=== PATIENT | female | born 1980 | race Caucasian/White ===

== ENCOUNTER 2016-08-16 20:13 | Emergency (ER) | payer OTHER ==
[~2016-08-16] VITALS: Ht 165.1 cm; Wt 134.4 kg
[~2016-08-16 20:13] MED LIST: ACIDOPHILUS1 EAC5 PO; ALBUTEROL SULF8.5 GM IH; ALL DAY ALLERGY10 M1 PO; AMLODIPINE BESYL5 MG PO; ANTIVERT25 MG PO; ATORVASTATIN CA20 MG PO; BACTRIM,SEPT1 TABLET PO; CELEXA20 MG PO; CIPRO500 MG PO; ELAVIL25 MG PO; ELAVIL50 MG PO; ELAVIL75 MG PO; FLONASE16 G1 BOTH NARES; GLUCOPHAGE500 MG PO; GLYBURIDE5 MG PO; IMITREX50 MG PO; INVOKAMET 150-1 EACH PO; KEFLEX500 MG PO; KLONOPIN0.5 M1 PO; MOTRIN600 MG PO; MOTRIN800 MG PO; NASONEX17 GM BOTH NARES; NORCO 5/3251 TABLET PO; OCUFLOX 0.100 DROP/5 BOTH EYES; PERCOCET 5/31 TABLET PO; PROMETHAZINE HC25 M1 PO; SPRINTEC1 EACH PO; SULFAZINE500 M1 PO; TRAZODONE HCL50 MG PO; TRULICITY1.5 MG/0.5 SC; ULTRAM50 MG PO; VALIUM5 MG PO; ZESTORETIC 20-1 EAC2 PO; ZOFRAN ODT4 MG PO; ZOFRAN4 MG PO; ZOLOFT100 MG PO
[2016-08-16 20:44] LABS: POINT-OF-CARE METER ID UU13113778
[2016-08-16 21:13] LABS: HEMATOCRIT 48.3 % (36.0-46.0); MCH 29.1 PG (29.0-34.0); MCV 83.3 FL (83-99); MEAN PLAT.VOLUME 11.9 uM^3 (9.5-12.4); PLATELET COUNT 195 K/uL (156-360); RBC DIS.WIDTH-CV 14.1 % (11.8-14.6); RBC DIS.WIDTH-SD 42.5 % (39-53); WHITE BLOOD COUNT 10.6 K/uL (4.1-10.2)
[2016-08-16 21:21] LABS: CHLORIDE 104 mEq/L (99-109); POTASSIUM 4.2 mEq/L (3.7-5.4); SODIUM 136 mEq/L (136-147)
[2016-08-16 21:25] LABS: ANION GAP 12 MEQ/L (2-14); TOTAL BILIRUBIN 0.5 mg/dL (0.0-1.0)
[2016-08-16 21:27] LABS: ALKALINE PHOSPHATASE 75 IU/L (3-129); GFR ESTIMATE (CALCULATED) 55 mL/min/
[2016-08-16 21:28] LABS: UREA NITROGEN (BUN) 14 mg/dL (9-23)
[2016-08-16 21:29] LABS: GLUCOSE 452 mg/dL (70-99)
[2016-08-16 21:37] LABS: QUANTITATIVE HCG < 4.0 MIU/ML
[2016-08-16 22:43] LABS: ADD MIUA? YES; BILIRUBIN NEGATIVE; BLOOD TRACE; COLOR YELLOW ((YELLOW)); GLUCOSE (STRIP) >=1000; KETONES NEGATIVE; LEUKOCYTES NEGATIVE; NITRITE NEGATIVE; PH, URINE 5.5 (5-8); PROTEIN (STRIP) NEGATIVE; UROBILINOGEN 0.2 MG/DL (0.2-1.0)
[2016-08-16 22:59] LABS: SPECIFIC GRAVITY 1.044 (1.000-1.030)
[2016-08-16 23:06] LABS: BACTERIA RARE; CASTS NONE SEEN /LPF; CRYSTALS NONE SEEN; EPITHELIAL CELLS RARE; MUCUS NONE SEEN; UCUL ADDED? NO; WHITE BLOOD CELLS 0-5 /HPF (0-5)
[2016-08-16 23:11] LABS: CARBON DIOXIDE (BICARBONATE) 24.3 MEQ/L (20-31)
[2016-08-16 23:42] LABS: TROP-I INTERPRETATION NEGATIVE; TROPONIN-I < 0.01 ng/mL (0.0-0.30)
[2016-08-17 01:26] LABS: POINT-OF-CARE METER ID UU13113800
[2016-08-17 02:20] VITALS: BP 103/65
== END 2016-08-17 02:22 | disposition home or self-care (01) ==
LOC: EME 20:13
PROVIDERS: Nurse Practitioner Family
DX: E11.65 Type 2 diabetes mellitus with hyperglycemia (principal); E78.5 Hyperlipidemia, unspecified; Z87.442 Personal history of urinary calculi
CPT/HCPCS: 70450; 80053; 81003; 82803; 82948; 84484; 84702; 85027; 93005; 99281; 99285

== ENCOUNTER 2016-10-01 13:37 | Emergency (ER) | payer OTHER ==
[~2016-10-01] VITALS: Ht 166.4 cm; Wt 134.9 kg
[2016-10-01 14:44] LABS: HEMATOCRIT 45.3 % (36.0-46.0); MCHC 33.8 G/DL (30.0-36.0); MEAN PLAT.VOLUME 10.5 uM^3 (9.5-12.4); PLATELET COUNT 192 K/uL (156-360); RBC DIS.WIDTH-CV 14.6 % (11.8-14.6); RBC DIS.WIDTH-SD 45.6 % (39-53); RED BLOOD COUNT 5.27 M/uL (3.80-5.20); WHITE BLOOD COUNT 10.7 K/uL (4.1-10.2)
[2016-10-01 14:56] LABS: CHLORIDE 107 mEq/L (99-109); POTASSIUM 3.5 mEq/L (3.7-5.4); SODIUM 142 mEq/L (136-147)
[2016-10-01 14:57] LABS: GLUCOSE 122 mg/dL (70-99)
[2016-10-01 14:59] LABS: ANION GAP 11 MEQ/L (2-14)
[2016-10-01 15:01] LABS: GFR ESTIMATE (CALCULATED) > 59 mL/min/
[2016-10-01 15:02] LABS: UREA NITROGEN (BUN) 12 mg/dL (9-23)
[2016-10-01 19:08] LABS: ADD MIUA? YES; BILIRUBIN NEGATIVE; BLOOD NEGATIVE; COLOR YELLOW ((YELLOW)); GLUCOSE (STRIP) >=500; KETONES 20; LEUKOCYTES MODERATE; NITRITE NEGATIVE; PROTEIN (STRIP) NEGATIVE; SPECIFIC GRAVITY 1.031 (1.000-1.030); UROBILINOGEN 0.2 MG/DL (0.2-1.0)
[2016-10-01 19:22] LABS: BACTERIA NONE SEEN /HPF; EPITHELIAL CELLS 1+ /HPF; MUCUS NONE SEEN /LPF; RED BLOOD CELLS 0-5 /HPF (0-5); UCUL ADDED? NO; WHITE BLOOD CELLS 20-30 /HPF (0-5)
[2016-10-01 23:21] LABS: TOTAL BILIRUBIN 0.7 mg/dL (0.0-1.0)
[2016-10-01 23:22] LABS: ALKALINE PHOSPHATASE 61 IU/L (3-129)
[2016-10-01 23:24] LABS: DIRECT BILIRUBIN 0.2 mg/dL (0.0-0.3)
[2016-10-01 23:25] LABS: LIPASE 20 U/L (1.0-51.0)
[2016-10-01 23:32] LABS: QUANTITATIVE HCG < 4.0 MIU/ML
[2016-10-01] MEDS ORDERED: REGLAN5 MG PO (23:41)
[2016-10-01] MEDS ORDERED: TORADOL10 MG PO (23:41)
[2016-10-01] MEDS ORDERED: MEDROL DOSEPAK4 MG PO (23:41)
[2016-10-01] MEDS ORDERED: PERCOCET 5/31 TABLET PO (23:41)
[2016-10-01] MEDS ORDERED: BACTRIM,SEPT1 TABLET PO (23:55)
[2016-10-02 00:29] VITALS: BP 138/87
== END 2016-10-02 00:32 | disposition home or self-care (01) ==
LOC: EME 13:37
DX: R51 Headache (principal); G43.909 Migraine, unspecified, not intractable, without status migrainosus; I10 Essential (primary) hypertension
CPT/HCPCS: 80048; 80076; 81003; 83690; 84702; 85027; 99281; 99285; J1100; J1200; J1885; J2270; J2765; J3475; J7030

== ENCOUNTER 2016-10-26 12:05 | Emergency (ER) | payer OTHER ==
[~2016-10-26] VITALS: Ht 167.6 cm; Wt 137.1 kg
[~2016-10-26 12:05] MED LIST changes: +MEDROL DOSEPAK4 MG PO; +REGLAN5 MG PO; +TORADOL10 MG PO
[2016-10-26 18:10] LABS: APPEARANCE CLEAR/COLORLESS; RED CELL AREA COUNTED 8; RED CELL COUNT 400 /MM^3 (0-1); RED CELL DILUTION 1; WBC DILUTION 1; WHITE CELL RAW COUNT 9
[2016-10-26 18:11] LABS: WBC AREA COUNTED 18; WHITE CELL COUNT 5 /MM^3 (0-5)
[2016-10-26 18:24] LABS: APPEARANCE (RECHECK) CLEAR/COLORLESS; CSF TUBE NUMBER (RECHECK) TUBE #1; RED CELL AREA COUNTED 8; RED CELL COUNT (RECHECK) 218 /MM^3 (0-1); RED CELL DILUTION 1
[2016-10-26 18:41] VITALS: BP 134/75
[2016-10-26 19:02] LABS: CSF EOSINOPHILS 0 % (0-25); MONO RAW COUNT 72; MONONUCLEAR WBC'S 72 % (50-90); POLY RAW COUNT 28; POLYNUCLEAR WBC'S 28 % (0-3)
== END 2016-10-26 18:42 | disposition home or self-care (01) ==
LOC: EME 12:05
PROVIDERS: Radiology Diagnostic Radiology
PROC: 009U3ZX Drainage of Spinal Canal, Percutaneous Approach, Diagnostic (ICD-10-PCS; principal; 2016-10-26)
DX: G43.909 Migraine, unspecified, not intractable, without status migrainosus (principal); G93.2 Benign intracranial hypertension; M54.2 Cervicalgia; E11.9 Type 2 diabetes mellitus without complications; E78.5 Hyperlipidemia, unspecified; I10 Essential (primary) hypertension; J45.909 Unspecified asthma, uncomplicated
CPT/HCPCS: 70450; 77003; 82945; 84157; 87070; 87205; 89051; 99281; 99285; J0780; J1885

== ENCOUNTER 2016-11-10 00:57 | Emergency (ER) | payer OTHER ==
[~2016-11-10] VITALS: Ht 167.6 cm; Wt 133.8 kg
[2016-11-10 07:59] VITALS: BP 114/86
== END 2016-11-10 08:03 | disposition home or self-care (01) ==
LOC: EME 00:57
DX: R51 Headache (principal); Z86.79 Personal history of other diseases of the circulatory system; G43.909 Migraine, unspecified, not intractable, without status migrainosus; Z91.040 Latex allergy status; Z88.1 Allergy status to other antibiotic agents; Z88.8 Allergy status to other drugs, medicaments and biological substances; E11.9 Type 2 diabetes mellitus without complications; Z79.84 Long term (current) use of oral hypoglycemic drugs; E78.5 Hyperlipidemia, unspecified; Z87.442 Personal history of urinary calculi
CPT/HCPCS: 99281; 99285; J0780; J1100; J1200; J1885; J7030

== ENCOUNTER → 2017-06-06 | Outpatient (CLI) | payer OTHER ==
[~2017-06-06] VITALS: Ht 166.4 cm; Wt 143.6 kg
[~2017-06-06] MED LIST changes: +ALDOMET250 MG PO; +GLUCOPHAGE1000 MG PO; +HUMALOG100 UNIT/1 SC; +PRENATAL TABLE1 EAC3 PO
[2017-06-06 13:02] VITALS: BP 131/88
== END | disposition home or self-care (01) ==
LOC: IVINF 12:40
DX: Z31.82 Encounter for Rh incompatibility status (principal); Z3A.28 28 weeks gestation of pregnancy; Z67.41 Type O blood, Rh negative
CPT/HCPCS: 96372; J2790

== ENCOUNTER 2017-07-06 22:00 | Outpatient (CLI) | payer OTHER ==
[2017-07-06] VITALS (7 sets, daily range): BP systolic 149–176; BP diastolic 90–102
[2017-07-06 22:58] LABS: POINT-OF-CARE METER ID UU13113801
[2017-07-06 23:56] LABS: EOSINOPHIL (%) 0.6 % (0-5); EOSINOPHIL COUNT 0.1 K/uL (0-0.3); HEMATOCRIT 37.4 % (36.0-46.0); IMMATURE GRANULOCYTE (%) 1.3 % (0.0-0.7); IMMATURE GRANULOCYTE COUNT 0.2 K/uL; INSTRUMENT ABS NEUTROPHIL CT 9.9 K/uL; LYMPHOCYTE COUNT 2.4 K/uL (1.0-2.8); MCH 30.8 PG (29.0-34.0); MCHC 33.2 G/DL (30.0-36.0); MCV 92.8 FL (83-99); MEAN PLAT.VOLUME 11.5 uM^3 (9.5-12.4); MONOCYTE (%) 6.7 % (3-12); MONOCYTE COUNT 0.9 K/uL (0-0.8); NEUTROPHIL (%) 73.1 % (45-76); NEUTROPHIL COUNT 9.9 K/uL (1.8-6.4); NRBC (%) 0.1 /100 WBC (0-0); PLATELET COUNT 174 K/uL (156-360); RBC DIS.WIDTH-CV 15.1 % (11.8-14.6); RBC DIS.WIDTH-SD 51.1 % (39-53); RED BLOOD COUNT 4.03 M/uL (3.80-5.20); WHITE BLOOD COUNT 13.6 K/uL (4.1-10.2)
[2017-07-07 00:02] LABS: CHLORIDE 112 mEq/L (99-109); POTASSIUM 4.4 mEq/L (3.7-5.4); SODIUM 140 mEq/L (136-147)
[2017-07-07 00:04] LABS: GLUCOSE 126 mg/dL (70-99)
[2017-07-07 00:05] LABS: ANION GAP 9 MEQ/L (2-14)
[2017-07-07 00:06] VITALS: BP 150/88
[2017-07-07 00:06] LABS: TOTAL BILIRUBIN 0.3 mg/dL (0.0-1.0)
[2017-07-07 00:08] LABS: ALKALINE PHOSPHATASE 88 IU/L (3-129); GFR ESTIMATE (CALCULATED) > 59 mL/min/
[2017-07-07 00:09] LABS: UREA NITROGEN (BUN) 20 mg/dL (9-23)
[2017-07-07 00:16] VITALS: BP 133/70
[2017-07-07 00:33] LABS: UR CREATININE CONCENTRATION 200.9 MG/DL
[2017-07-07 00:50] VITALS: BP 148/93
[2017-07-07 01:07] VITALS: BP 132/68
== END 2017-07-07 01:34 | disposition home or self-care (01) ==
LOC: LDRP-OP 22:00 → 2WEST 22:02
PROVIDERS: Obstetrics & Gynecology Obstetrics
DX: O10.913 Unspecified pre-existing hypertension complicating pregnancy, third trimester (principal); G93.2 Benign intracranial hypertension; Z3A.32 32 weeks gestation of pregnancy
CPT/HCPCS: 59025; 80053; 82570; 82948; 84156; 85025; G0378

== ENCOUNTER 2017-07-12 16:26 | Outpatient (CLI) | payer OTHER ==
[2017-07-12] VITALS (12 sets, daily range): BP systolic 107–144; BP diastolic 56–83
[~2017-07-12] VITALS: Ht 167.6 cm; Wt 149.0 kg
[2017-07-12] MEDS ORDERED: ALDOMET500 MG PO (17:46)
[2017-07-12 18:03] LABS: BASOPHIL COUNT 0.1 K/uL (0-0.1); EOSINOPHIL (%) 0.6 % (0-5); EOSINOPHIL COUNT 0.1 K/uL (0-0.3); HEMATOCRIT 37.5 % (36.0-46.0); IMMATURE GRANULOCYTE COUNT 0.1 K/uL; INSTRUMENT ABS NEUTROPHIL CT 10.9 K/uL; LYMPHOCYTE COUNT 2.3 K/uL (1.0-2.8); MCH 30.4 PG (29.0-34.0); MCHC 32.8 G/DL (30.0-36.0); MCV 92.8 FL (83-99); MEAN PLAT.VOLUME 11.1 uM^3 (9.5-12.4); MONOCYTE COUNT 0.9 K/uL (0-0.8); NEUTROPHIL (%) 75.9 % (45-76); NEUTROPHIL COUNT 10.9 K/uL (1.8-6.4); PLATELET COUNT 186 K/uL (156-360); RBC DIS.WIDTH-CV 14.9 % (11.8-14.6); RBC DIS.WIDTH-SD 50.3 % (39-53); RED BLOOD COUNT 4.04 M/uL (3.80-5.20); WHITE BLOOD COUNT 14.4 K/uL (4.1-10.2)
[2017-07-12 18:12] LABS: ANION GAP 8 MEQ/L (2-14); CHLORIDE 109 MEQ/L (99-109); POTASSIUM 4.5 MEQ/L (3.7-5.4); SAMPLE HEMOLYSIS CHECK 0; SAMPLE ICTERIC CHECK 0; SAMPLE LIPEMIA CHECK 0; SODIUM 139 MEQ/L (136-147); TOTAL BILIRUBIN 0.3 MG/DL (0.0-1.0)
[2017-07-12 18:17] LABS: ADD MIUA? YES; BILIRUBIN NEGATIVE; BLOOD NEGATIVE; COLOR YELLOW ((YELLOW)); GLUCOSE (STRIP) NEGATIVE; KETONES 5; LEUKOCYTES LARGE; NITRITE NEGATIVE; PROTEIN (STRIP) NEGATIVE; SPECIFIC GRAVITY 1.015 (1.000-1.030); UROBILINOGEN 0.2 MG/DL (0.2-1.0)
[2017-07-12 18:18] LABS: ALKALINE PHOSPHATASE 77 IU/L (3-129); GFR ESTIMATE (CALCULATED) > 59 mL/min/; GLUCOSE 80 mg/dL (70-99); UREA NITROGEN (BUN) 19 mg/dL (9-23)
[2017-07-12 19:00] LABS: BACTERIA 2+ /HPF; CASTS NONE SEEN /LPF; EPITHELIAL CELLS 2+ /HPF; MUCUS TRACE /LPF; RED BLOOD CELLS RARE /HPF (0-5); WHITE BLOOD CELLS 40-50 /HPF (0-5)
[2017-07-12 19:01] LABS: CRYSTALS NONE SEEN
[2017-07-12 19:57] LABS: POINT-OF-CARE METER ID UU13113801; POINT-OF-CARE USER ID PUTRLG40
[2017-07-12 23:43] LABS: POINT-OF-CARE METER ID UU13113692; POINT-OF-CARE USER ID PUTRLG40
[2017-07-13 02:10] VITALS: BP 132/72
[2017-07-13 06:16] VITALS: BP 106/55
[2017-07-13 07:18] LABS: POINT-OF-CARE METER ID UU13113801
[2017-07-13 07:21] VITALS: BP 119/63
[2017-07-13 09:35] LABS: POINT-OF-CARE METER ID UU13113801
[2017-07-13 11:29] VITALS: BP 128/69
[2017-07-13 11:48] LABS: POINT-OF-CARE METER ID UU13113801
[2017-07-13 13:17] LABS: POINT-OF-CARE METER ID UU13113801
[2017-07-13 14:47] VITALS: BP 135/74
[2017-07-13 15:55] LABS: ANION GAP 12 MEQ/L (2-14); CHLORIDE 105 MEQ/L (99-109); POTASSIUM 4.3 MEQ/L (3.7-5.4); SAMPLE HEMOLYSIS CHECK 0; SAMPLE ICTERIC CHECK 0; SAMPLE LIPEMIA CHECK 0; SODIUM 135 MEQ/L (136-147)
[2017-07-13 16:02] LABS: GFR ESTIMATE (CALCULATED) > 59 mL/min/; UREA NITROGEN (BUN) 24 mg/dL (9-23)
[2017-07-13 16:03] LABS: GLUCOSE 130 mg/dL (70-99)
[2017-07-13 16:18] LABS: POINT-OF-CARE METER ID UU13113801
[2017-07-13 18:16] LABS: POINT-OF-CARE METER ID UU13113801
[2017-07-13 20:05] VITALS: BP 140/80
[2017-07-13 22:48] LABS: POINT-OF-CARE METER ID UU13113801
[2017-07-14 04:31] VITALS: BP 121/73
[2017-07-14 07:15] LABS: POINT-OF-CARE METER ID UU13113801
[2017-07-14 07:28] VITALS: BP 128/84
[2017-07-14 08:48] LABS: POINT-OF-CARE METER ID UU13113801
[2017-07-14 11:18] VITALS: BP 129/68
[2017-07-14 12:07] LABS: POINT-OF-CARE METER ID UU13113801
[2017-07-14 13:23] LABS: POINT-OF-CARE METER ID UU13113801
[2017-07-14 14:46] VITALS: BP 138/89
[2017-07-14 19:25] VITALS: BP 141/80
[2017-07-14 21:07] LABS: POINT-OF-CARE METER ID UU13113692
[2017-07-14 21:07] LABS: POINT-OF-CARE METER ID UU13113692
[2017-07-14 22:15] VITALS: BP 137/80
[2017-07-14 22:51] LABS: POINT-OF-CARE METER ID UU13113801
[2017-07-15 01:54] VITALS: BP 181/90
[2017-07-15 02:37] VITALS: BP 123/59
[2017-07-15 08:03] VITALS: BP 134/79
[2017-07-15 12:07] VITALS: BP 134/72
[2017-07-15 13:39] LABS: POINT-OF-CARE METER ID UU13113692
[2017-07-15 13:39] LABS: POINT-OF-CARE METER ID UU13113692
[2017-07-15 13:39] LABS: POINT-OF-CARE METER ID UU13113692
[2017-07-15 15:22] VITALS: BP 119/65
== END 2017-07-15 18:59 | disposition home or self-care (01) ==
LOC: LDRP-OP 16:26 → 2WEST 16:28 → LDRP-OP 09-29 01:44
PROVIDERS: Obstetrics & Gynecology
DX: O24.113 Pre-existing type 2 diabetes mellitus, in pregnancy, third trimester (principal); E11.65 Type 2 diabetes mellitus with hyperglycemia; O10.913 Unspecified pre-existing hypertension complicating pregnancy, third trimester; I10 Essential (primary) hypertension; O99.513 Diseases of the respiratory system complicating pregnancy, third trimester; J45.909 Unspecified asthma, uncomplicated; O99.213 Obesity complicating pregnancy, third trimester; E66.9 Obesity, unspecified; O99.343 Other mental disorders complicating pregnancy, third trimester; F32.9 Major depressive disorder, single episode, unspecified; O26.893 Other specified pregnancy related conditions, third trimester; G43.909 Migraine, unspecified, not intractable, without status migrainosus; E28.2 Polycystic ovarian syndrome; Z83.3 Family history of diabetes mellitus; Z3A.33 33 weeks gestation of pregnancy; Z82.49 Family history of ischemic heart disease and other diseases of the circulatory system; Z83.49 Family history of other endocrine, nutritional and metabolic diseases
CPT/HCPCS: 59025; 76805; 76818; 80048; 80053; 81003; 82010; 82948; 85025; 94660; 99202; G0378; J0696; J0702; J1815; J3105; J7120

== ENCOUNTER 2017-07-17 13:49 | Inpatient (IN) | payer OTHER ==
[~2017-07-17] VITALS: Ht 167.6 cm; Wt 151.8 kg
[2017-07-17] VITALS (10 sets, daily range): BP systolic 129–170; BP diastolic 65–101
[~2017-07-17 13:49] MED LIST changes: +ALDOMET500 MG PO
[2017-07-17 14:59] LABS: EOSINOPHIL (%) 0.5 % (0-5); EOSINOPHIL COUNT 0.1 K/uL (0-0.3); HEMATOCRIT 36.7 % (36.0-46.0); IMMATURE GRANULOCYTE (%) 2.2 % (0.0-0.7); IMMATURE GRANULOCYTE COUNT 0.3 K/uL; INSTRUMENT ABS NEUTROPHIL CT 9.6 K/uL; LYMPHOCYTE COUNT 2.2 K/uL (1.0-2.8); MCH 31.4 PG (29.0-34.0); MCHC 33.8 G/DL (30.0-36.0); MCV 92.9 FL (83-99); MEAN PLAT.VOLUME 11.7 uM^3 (9.5-12.4); MONOCYTE COUNT 0.8 K/uL (0-0.8); NEUTROPHIL (%) 74.1 % (45-76); NEUTROPHIL COUNT 9.6 K/uL (1.8-6.4); NRBC (%) 0.4 /100 WBC (0-0); PLATELET COUNT 168 K/uL (156-360); RBC DIS.WIDTH-CV 14.9 % (11.8-14.6); RBC DIS.WIDTH-SD 50.4 % (39-53); RED BLOOD COUNT 3.95 M/uL (3.80-5.20)
[2017-07-17 15:28] LABS: ALKALINE PHOSPHATASE 82 IU/L (3-129); ANION GAP 11 MEQ/L (2-14); CHLORIDE 109 MEQ/L (99-109); GFR ESTIMATE (CALCULATED) > 59 mL/min/; GLUCOSE 123 mg/dL (70-99); POTASSIUM 3.8 MEQ/L (3.7-5.4); SAMPLE HEMOLYSIS CHECK 0; SAMPLE ICTERIC CHECK 0; SAMPLE LIPEMIA CHECK 0; SODIUM 138 MEQ/L (136-147); UREA NITROGEN (BUN) 22 mg/dL (9-23)
[2017-07-17 15:36] LABS: TOTAL BILIRUBIN 0.2 MG/DL (0.0-1.0)
[2017-07-17 15:45] LABS: ADD MIUA? YES; BILIRUBIN NEGATIVE; BLOOD NEGATIVE; COLOR YELLOW ((YELLOW)); GLUCOSE (STRIP) NEGATIVE; KETONES 5; LEUKOCYTES LARGE; NITRITE NEGATIVE; PROTEIN (STRIP) NEGATIVE; SPECIFIC GRAVITY 1.019 (1.000-1.030); UROBILINOGEN 0.2 MG/DL (0.2-1.0)
[2017-07-17 16:00] LABS: BACTERIA RARE /HPF; EPITHELIAL CELLS 4+ /HPF; HYALINE CASTS 0-5 /LPF; MUCUS 2+ /LPF; RED BLOOD CELLS 0-5 /HPF (0-5)
[2017-07-17 22:22] LABS: POINT-OF-CARE METER ID UU13113801
[2017-07-18] VITALS (17 sets, daily range): BP systolic 120–175; BP diastolic 68–111
[2017-07-18 07:32] LABS: POINT-OF-CARE METER ID UU13113801; POINT-OF-CARE USER ID RADDNY
[2017-07-18 08:42] LABS: POINT-OF-CARE METER ID UU13113801; POINT-OF-CARE USER ID 608261309
[2017-07-18 11:18] LABS: EOSINOPHIL (%) 0.8 % (0-5); EOSINOPHIL COUNT 0.1 K/uL (0-0.3); HEMATOCRIT 36.1 % (36.0-46.0); IMMATURE GRANULOCYTE (%) 1.4 % (0.0-0.7); IMMATURE GRANULOCYTE COUNT 0.2 K/uL; INSTRUMENT ABS NEUTROPHIL CT 7.5 K/uL; LYMPHOCYTE COUNT 2.2 K/uL (1.0-2.8); MCH 30.4 PG (29.0-34.0); MCV 92.3 FL (83-99); MEAN PLAT.VOLUME 11.8 uM^3 (9.5-12.4); MONOCYTE (%) 5.5 % (3-12); MONOCYTE COUNT 0.6 K/uL (0-0.8); NEUTROPHIL (%) 71.2 % (45-76); NEUTROPHIL COUNT 7.5 K/uL (1.8-6.4); PLATELET COUNT 172 K/uL (156-360); RBC DIS.WIDTH-SD 50.3 % (39-53); RED BLOOD COUNT 3.91 M/uL (3.80-5.20); WHITE BLOOD COUNT 10.5 K/uL (4.1-10.2)
[2017-07-18 11:25] LABS: INTER. NORMALIZED RATIO 0.9; PROTHROMBIN TIME 10.5 SEC (10.2-12.9)
[2017-07-18 11:26] LABS: PTT 23.5 SEC (25-37)
[2017-07-18 11:34] LABS: ALKALINE PHOSPHATASE 77 IU/L (3-129); ANION GAP 12 MEQ/L (2-14); CHLORIDE 108 MEQ/L (99-109); GFR ESTIMATE (CALCULATED) > 59 mL/min/; GLUCOSE 111 mg/dL (70-99); POTASSIUM 3.9 MEQ/L (3.7-5.4); SAMPLE HEMOLYSIS CHECK 0; SAMPLE ICTERIC CHECK 0; SAMPLE LIPEMIA CHECK 0; SODIUM 139 MEQ/L (136-147); TOTAL BILIRUBIN 0.2 MG/DL (0.0-1.0); UREA NITROGEN (BUN) 18 mg/dL (9-23)
[2017-07-18 11:35] LABS: FIBRINOGEN 517 mg/dL (150-450)
[2017-07-18 12:24] LABS: POINT-OF-CARE METER ID UU13113692; POINT-OF-CARE USER ID RADDNY
[2017-07-18 13:25] LABS: DRSB INTERNAL CONTROL PASS; PROBE CHECK PASS; SPECIMEN PROCESSING CONTROL PASS
[2017-07-18 18:14] LABS: POINT-OF-CARE METER ID UU13113675
[2017-07-18] MEDS ORDERED: ENDOCET 5-3251 EACH PO (19:36)
[2017-07-18] MEDS ORDERED: LOVENOX40 MG/0.4 SC (19:36)
[2017-07-18] MEDS ORDERED: ALDOMET500 MG PO (19:36)
[2017-07-18] MEDS ORDERED: IBUPROFEN800 MG PO (19:36)
[2017-07-18 22:27] LABS: POINT-OF-CARE METER ID UU13113801
[2017-07-19] VITALS (12 sets, daily range): BP systolic 123–147; BP diastolic 69–88
[2017-07-19 07:50] LABS: EOSINOPHIL (%) 0.2 % (0-5); HEMATOCRIT 32.3 % (36.0-46.0); IMMATURE GRANULOCYTE (%) 0.8 % (0.0-0.7); IMMATURE GRANULOCYTE COUNT 0.1 K/uL; INSTRUMENT ABS NEUTROPHIL CT 11.9 K/uL; LYMPHOCYTE COUNT 2.2 K/uL (1.0-2.8); MCH 31.4 PG (29.0-34.0); MCHC 33.4 G/DL (30.0-36.0); MCV 93.9 FL (83-99); MEAN PLAT.VOLUME 11.8 uM^3 (9.5-12.4); MONOCYTE (%) 6.7 % (3-12); NEUTROPHIL COUNT 11.9 K/uL (1.8-6.4); PLATELET COUNT 172 K/uL (156-360); RBC DIS.WIDTH-SD 51.7 % (39-53); RED BLOOD COUNT 3.44 M/uL (3.80-5.20); WHITE BLOOD COUNT 15.3 K/uL (4.1-10.2)
[2017-07-19 10:24] LABS: POINT-OF-CARE METER ID UU13113801
[2017-07-19 13:39] LABS: POINT-OF-CARE METER ID UU13113801
[2017-07-19 18:04] LABS: POINT-OF-CARE METER ID UU13113801
[2017-07-20 03:37] VITALS: BP 136/80
[2017-07-20 05:52] LABS: POINT-OF-CARE METER ID UU13113801
[2017-07-20 07:47] VITALS: BP 139/89
[2017-07-20 09:49] LABS: POINT-OF-CARE METER ID UU13113801
[2017-07-20 13:42] LABS: POINT-OF-CARE METER ID UU13113801
[2017-07-20 15:12] VITALS: BP 136/76
[2017-07-20 18:37] LABS: POINT-OF-CARE METER ID UU13113801
[2017-07-20 19:53] VITALS: BP 170/106
[2017-07-20 21:25] VITALS: BP 157/99
[2017-07-20 21:57] LABS: POINT-OF-CARE METER ID UU13113801
[2017-07-21 02:37] VITALS: BP 134/80
[2017-07-21 06:47] LABS: POINT-OF-CARE METER ID UU13113801
[2017-07-21] MEDS ORDERED: BREAST PUMP MC (08:10)
[2017-07-21 08:41] VITALS: BP 139/81
[2017-07-21 09:15] LABS: POINT-OF-CARE METER ID UU13113801
[2017-07-21 12:52] VITALS: BP 142/84
[2017-07-21 13:30] LABS: POINT-OF-CARE METER ID UU13113801
[2017-07-21 16:00] VITALS: BP 174/86
[2017-07-21 18:33] LABS: POINT-OF-CARE METER ID UU13113801
[2017-07-21 21:37] LABS: POINT-OF-CARE METER ID UU13113801
[2017-07-22 02:56] VITALS: BP 137/61
[2017-07-22 06:46] LABS: POINT-OF-CARE METER ID UU13113801
[2017-07-22 07:47] VITALS: BP 135/86
[2017-07-22 09:17] LABS: POINT-OF-CARE METER ID UU13113801
== END 2017-07-22 12:20 | disposition home or self-care (01) | DRG 765 ==
LOC: LDRP-OP 13:49 → 2WEST 13:50 → LDRP-OP 09-29 21:04
PROVIDERS: Obstetrics & Gynecology
PROC: 3E0P7VZ Introduction of Hormone into Female Reproductive, Via Natural or Artificial Opening (ICD-10-PCS; 2017-07-17)
PROC: 10D00Z1 Extraction of Products of Conception, Low, Open Approach (ICD-10-PCS; principal; 2017-07-18)
DX: O11.3 Pre-existing hypertension with pre-eclampsia, third trimester (principal); O24.02 Pre-existing type 1 diabetes mellitus, in childbirth; E10.9 Type 1 diabetes mellitus without complications; O61.9 Failed induction of labor, unspecified; O60.14X0 Preterm labor third trimester with preterm delivery third trimester, not applicable or unspecified; O69.1XX0 Labor and delivery complicated by cord around neck, with compression, not applicable or unspecified; O99.354 Diseases of the nervous system complicating childbirth; G93.2 Benign intracranial hypertension; G43.909 Migraine, unspecified, not intractable, without status migrainosus; O99.214 Obesity complicating childbirth; E66.01 Morbid (severe) obesity due to excess calories; Z68.42 Body mass index [BMI] 45.0-49.9, adult; O99.843 Bariatric surgery status complicating pregnancy, third trimester; Z3A.34 34 weeks gestation of pregnancy; Z37.0 Single live birth; O99.344 Other mental disorders complicating childbirth; F32.9 Major depressive disorder, single episode, unspecified; O99.52 Diseases of the respiratory system complicating childbirth; M79.1 Myalgia; M19.90 Unspecified osteoarthritis, unspecified site; J45.909 Unspecified asthma, uncomplicated
CPT/HCPCS: 76818; 80053; 81003; 82570; 82948; 84156; 85025; 85384; 85610; 85730; 86850; 86870; 86900; 86901; 86905; 86920; 87653; 88307; 90686; C1776; G0378; J0690; J1170; J1650; J1815; J2274; J2540; J2590; J3475; J7120

== ENCOUNTER 2017-10-20 14:14 | Emergency (ER) | payer OTHER ==
[~2017-10-20] VITALS: Ht 165.1 cm; Wt 149.1 kg
[~2017-10-20 14:14] MED LIST changes: +BREAST PUMP MC; +ENDOCET 5-3251 EACH PO; +IBUPROFEN800 MG PO; +LOVENOX40 MG/0.4 SC
[2017-10-20] MEDS ORDERED: ZOFRAN4 MG PO (18:23)
[2017-10-20] MEDS ORDERED: FIORICET 50-301 EAC1 PO (18:23)
[2017-10-20 18:34] VITALS: BP 171/89
== END 2017-10-20 18:43 | disposition home or self-care (01) ==
LOC: EME 14:14
DX: R51 Headache (principal); I10 Essential (primary) hypertension; E11.9 Type 2 diabetes mellitus without complications; E78.5 Hyperlipidemia, unspecified; Z79.4 Long term (current) use of insulin; Z87.442 Personal history of urinary calculi; Z91.040 Latex allergy status; Z88.0 Allergy status to penicillin; Z88.8 Allergy status to other drugs, medicaments and biological substances
CPT/HCPCS: 99281; 99285; J1200; J1885; J2765; J7030